=== PATIENT | male | born 1945 | race Caucasian/White ===

== ENCOUNTER → 2017-02-13 | Outpatient (CLI) | payer OTHER, SELFPAY | LOC: KOH-I 13:02 | DX: R60.0 Localized edema (principal) | CPT/HCPCS: 93971; 94640; 94664 ==

== ENCOUNTER → 2017-03-06 | Outpatient (CLI) | payer OTHER, SELFPAY ==
[2017-03-06 09:10] LABS: BUN/CREATININE RATIO 13 (0-10)
== END ==
LOC: LAB 08:18
PROVIDERS: Emergency Medicine
DX: E03.8 Other specified hypothyroidism (principal); R60.0 Localized edema; I25.10 Atherosclerotic heart disease of native coronary artery without angina pectoris; E78.2 Mixed hyperlipidemia; I10 Essential (primary) hypertension; R53.83 Other fatigue
CPT/HCPCS: 36415; 80053; 84443

== ENCOUNTER 2017-04-06 19:23 | Emergency (ER) | payer OTHER, SELFPAY | END 2017-04-06 22:00 | disposition home or self-care (01) | LOC: ER1 19:23 | DX: L23.7 Allergic contact dermatitis due to plants, except food (principal); I10 Essential (primary) hypertension; E07.9 Disorder of thyroid, unspecified; F17.210 Nicotine dependence, cigarettes, uncomplicated; Z88.2 Allergy status to sulfonamides; Z88.8 Allergy status to other drugs, medicaments and biological substances; Z79.899 Other long term (current) drug therapy | CPT/HCPCS: 96372; 99282; J1100 ==

== ENCOUNTER → 2020-11-04 | Outpatient (CLI) | payer OTHER ==
[~2020-11-04] MED LIST: ALBUTEROL0.63 MG/3 INH; AUGMENTIN 875-1 EACH PO; CLARITIN10 MG PO; DYMISTA NASAL S23 GM; ECOTRIN81 MG PO; ELIQUIS5 MG PO; IBUPROFEN800 MG PO; IPRATROPIU0.2 MG/1 M INH; KENALOG CREAM 015 GM TD; LEVOTHYROXINE75 MC1 PO; LIPITOR TAB 2020 MG PO; LIPITOR20 MG PO; LISINOPRIL20 MG PO; MEDROL4 MG PO; PERCOCET 5-3251 EACH PO; PLAVIX 75 MG TA75 MG PO; PROTONIX 40 MG40 M1 PO; PROTONIX40 MG PO; PROVENTIL HFA6.7 GM INH; SYMBICORT 16010.2 GM INH; SYNTHROID75 MCG PO; TESSALON PERLE100 MG PO; TOPROL XL100 MG PO; VITAMIN B-121000 MCG PO; XYZAL5 MG PO
== END ==
LOC: LAB 10:40
DX: Z00.00 Encounter for general adult medical examination without abnormal findings (principal); I25.119 Atherosclerotic heart disease of native coronary artery with unspecified angina pectoris; E78.5 Hyperlipidemia, unspecified; I10 Essential (primary) hypertension; E78.00 Pure hypercholesterolemia, unspecified; I21.9 Acute myocardial infarction, unspecified; I65.29 Occlusion and stenosis of unspecified carotid artery
CPT/HCPCS: 36415; 80061; 80076

== ENCOUNTER → 2020-12-28 | Outpatient (CLI) | payer OTHER, SELFPAY | LOC: RT 09:50 | DX: I25.10 Atherosclerotic heart disease of native coronary artery without angina pectoris (principal); I10 Essential (primary) hypertension; I48.91 Unspecified atrial fibrillation; R94.31 Abnormal electrocardiogram [ECG] [EKG] | CPT/HCPCS: 93005 ==

== ENCOUNTER 2021-03-02 10:07 | Emergency (ER) | payer OTHER ==
[~2021-03-02 10:07] MED LIST changes: -IBUPROFEN800 MG PO
[2021-03-02] MEDS ORDERED: IBUPROFEN800 MG PO (12:12)
== END 2021-03-02 12:41 | disposition home or self-care (01) ==
LOC: ER1 10:07
DX: S61.211A Laceration without foreign body of left index finger without damage to nail, initial encounter (principal); I50.9 Heart failure, unspecified; W01.0XXA Fall on same level from slipping, tripping and stumbling without subsequent striking against object, initial encounter
CPT/HCPCS: 73130; 99283

== ENCOUNTER → 2021-03-08 | Outpatient (CLI) | payer OTHER ==
[~2021-03-08] MED LIST changes: +IBUPROFEN800 MG PO
[2021-03-08 11:30] LABS: HEMOGLOBIN 15.7 gm/dl (14.0-17.5); RED BLOOD COUNT 5.06 M/UL (4.20-5.50); WHITE BLOOD COUNT 7.4 K/UL (4.5-11.0)
[2021-03-08 11:54] LABS: BUN/CREATININE RATIO 11 (0-10)
[2021-03-11 12:15] LABS: CHOLESTEROL, TOTAL 138 mg/dL (100-199); HDL SIZE 8.8 nm (>=9.2); HDL-C 38 mg/dL (>39); HDL-P (TOTAL) 25.8 umol/L (>=30.5); LARGE HDL-P 3.6 umol/L (>=4.8); LARGE VLDL-P 2.9 nmol/L (<=2.7); LDL SIZE 20.7 nm (>20.5); LDL SIZE 20.7 nm (>=20.8); LDL-C 78 mg/dL (0-99); LDL-P 868 nmol/L (<1000); LP-IR SCORE 57 (<=45); SMALL LDL-P 367 nmol/L (<=527); TRIGLYCERIDES 122 mg/dL (0-149)
== END ==
LOC: LAB 10:05
PROVIDERS: Emergency Medicine
DX: Z00.01 Encounter for general adult medical examination with abnormal findings (principal); E78.2 Mixed hyperlipidemia; J43.8 Other emphysema; I48.21 Permanent atrial fibrillation; E03.8 Other specified hypothyroidism; I10 Essential (primary) hypertension; R35.0 Frequency of micturition
CPT/HCPCS: 36415; 80053; 80061; 83704; 84443; 84550; 85025

== ENCOUNTER → 2021-06-14 | Outpatient (CLI) | payer OTHER ==
[2021-06-14 10:45] LABS: BUN/CREATININE RATIO 12 (0-10)
== END ==
LOC: LAB 09:39
PROVIDERS: Emergency Medicine
DX: E78.2 Mixed hyperlipidemia (principal); E03.8 Other specified hypothyroidism; I10 Essential (primary) hypertension
CPT/HCPCS: 36415; 80053

== ENCOUNTER 2021-06-25 09:52 | Emergency (ER) | payer OTHER ==
[~2021-06-25] VITALS: Ht 170.2 cm; Wt 69.4 kg
[2021-06-25 11:52] LABS: HEMOGLOBIN 14.9 gm/dl (14.0-17.5); RED BLOOD COUNT 4.98 M/UL (4.20-5.50); WHITE BLOOD COUNT 5.3 K/UL (4.5-11.0)
[2021-06-25] MEDS ORDERED: DELSYM30 MG/5 ML PO (15:41)
[2021-06-25] MEDS ORDERED: ATROVENT HFA12.9 GM INH (15:41)
== END 2021-06-25 16:15 | disposition home or self-care (01) ==
LOC: ER1 09:52
PROVIDERS: Physician Assistant
DX: Z23 Encounter for immunization (principal); U07.1 COVID-19; I11.0 Hypertensive heart disease with heart failure; I50.9 Heart failure, unspecified; I48.91 Unspecified atrial fibrillation; Z86.73 Personal history of transient ischemic attack (TIA), and cerebral infarction without residual deficits; Z95.1 Presence of aortocoronary bypass graft; Z88.2 Allergy status to sulfonamides
CPT/HCPCS: 71045; 80053; 82550; 82553; 83874; 83880; 84484; 85025; 93005; 99284; M0243; U0002

== ENCOUNTER 2021-07-02 06:30 | Inpatient (IN) | payer OTHER ==
[~2021-07-02] VITALS: Ht 170.2 cm; Wt 68.9 kg
[~2021-07-02 06:30] MED LIST changes: +ATROVENT HFA12.9 GM INH; +DELSYM30 MG/5 ML PO; -LEVOTHYROXINE75 MC1 PO
[2021-07-02 07:02] LABS: HEMOGLOBIN 15.4 gm/dl (14.0-17.5); RED BLOOD COUNT 5.17 M/UL (4.20-5.50); WHITE BLOOD COUNT 12.5 K/UL (4.5-11.0)
[2021-07-02 07:30] LABS: BUN/CREATININE RATIO 16 (0-10)
[2021-07-02] MEDS ORDERED: LEVOTHYROXINE75 MCG PO (11:54)
[2021-07-02] MEDS ORDERED: SYMBICORT 160-1 INHA INH (12:44)
[2021-07-02] MEDS ORDERED: PROAIR DIGIHAL90 MCG INH (12:46)
[2021-07-02] MEDS ORDERED: ISOSORBIDE MONO60 MG PO (12:46)
[2021-07-02] MEDS ORDERED: METOPROLOL SUC100 MG PO (12:47)
[2021-07-02] MEDS ORDERED: LEVOCETIRIZINE D5 MG PO (12:48)
[2021-07-02] MEDS ORDERED: VITAMIN B-121000 MCG PO (12:48)
[2021-07-02] MEDS ORDERED: GARLIC1000 MG PO (12:48)
[2021-07-03 00:39] LABS: HEMOGLOBIN 14.1 gm/dl (14.0-17.5)
[2021-07-03 00:41] LABS: RED BLOOD COUNT 4.52 M/UL (4.20-5.50); WHITE BLOOD COUNT 8.6 K/UL (4.5-11.0)
[2021-07-03 00:54] LABS: BUN/CREATININE RATIO 13 (0-10)
== END 2021-07-03 11:15 | disposition left against medical advice (07) | DRG 177 ==
LOC: ER1 06:30 → CDU 08:28
PROVIDERS: Physician Assistant; Physician Assistant Medical; ADMIT Internal Medicine
PROC: XW033E5 Introduction of Remdesivir Anti-infective into Peripheral Vein, Percutaneous Approach, New Technology Group 5 (ICD-10-PCS; principal; 2021-07-02)
PROC: 3E0333Z Introduction of Anti-inflammatory into Peripheral Vein, Percutaneous Approach (ICD-10-PCS; 2021-07-02)
DX: U07.1 COVID-19 (principal); J12.82 Pneumonia due to coronavirus disease 2019; J96.01 Acute respiratory failure with hypoxia; I21.4 Non-ST elevation (NSTEMI) myocardial infarction; J44.0 Chronic obstructive pulmonary disease with (acute) lower respiratory infection; I71.4 Abdominal aortic aneurysm, without rupture; F17.210 Nicotine dependence, cigarettes, uncomplicated; I25.10 Atherosclerotic heart disease of native coronary artery without angina pectoris; E78.5 Hyperlipidemia, unspecified; E03.9 Hypothyroidism, unspecified; I48.0 Paroxysmal atrial fibrillation; J45.909 Unspecified asthma, uncomplicated; I72.3 Aneurysm of iliac artery; K21.9 Gastro-esophageal reflux disease without esophagitis; E87.6 Hypokalemia; I10 Essential (primary) hypertension; Z95.1 Presence of aortocoronary bypass graft; Z79.01 Long term (current) use of anticoagulants; Z90.49 Acquired absence of other specified parts of digestive tract; Z98.890 Other specified postprocedural states; Z88.2 Allergy status to sulfonamides; Z88.8 Allergy status to other drugs, medicaments and biological substances; Z82.3 Family history of stroke; Z83.3 Family history of diabetes mellitus; Z80.9 Family history of malignant neoplasm, unspecified; Z90.89 Acquired absence of other organs; Z82.49 Family history of ischemic heart disease and other diseases of the circulatory system; Z79.82 Long term (current) use of aspirin; Z79.899 Other long term (current) drug therapy
CPT/HCPCS: 36600; 71045; 80048; 80053; 82550; 82553; 82803; 83605; 83735; 83874; 83880; 84484; 85025; 85027; 85610; 85730; 87040; 93005; 94640; 94760; 99285; J1100; J1644; J2543; J7030; J7050

== ENCOUNTER 2021-07-06 09:21 | Observation (INO) | payer OTHER ==
[~2021-07-06] VITALS: Ht 170.2 cm; Wt 68.9 kg
[~2021-07-06 09:21] MED LIST changes: +GARLIC1000 MG PO; +ISOSORBIDE MONO60 MG PO; +LEVOCETIRIZINE D5 MG PO; +LEVOTHYROXINE75 MCG PO; +METOPROLOL SUC100 MG PO; +PROAIR DIGIHAL90 MCG INH; +SYMBICORT 160-1 INHA INH
[2021-07-06 10:01] LABS: HEMOGLOBIN 13.5 gm/dl (14.0-17.5); RED BLOOD COUNT 4.35 M/UL (4.20-5.50); WHITE BLOOD COUNT 10.5 K/UL (4.5-11.0)
[2021-07-06 10:37] LABS: BUN/CREATININE RATIO 15 (0-10)
[2021-07-07 03:47] LABS: HEMOGLOBIN 13.2 gm/dl (14.0-17.5); RED BLOOD COUNT 4.28 M/UL (4.20-5.50)
[2021-07-07 04:11] LABS: BUN/CREATININE RATIO 12 (0-10)
--- NOTE | 2021-07-07 10:58 | NUR ---
patient was seen by dr. gibson. received instructions from dr. gibson patient is going home, cancelled stress test, covid test. patient refused to take all his morning medications- dr. gibson aware. dr. amor hospitalist and dr. lara aware ofthe above
== END 2021-07-07 12:44 | disposition home or self-care (01) ==
LOC: ER1 09:21 → M/S 16:49 → CDU 16:49 → M/S 16:49
PROVIDERS: Physician Assistant; Student in an Organized Health Care Education/Training Program; ADMIT Internal Medicine
DX: U07.1 COVID-19 (principal); J12.82 Pneumonia due to coronavirus disease 2019; I48.20 Chronic atrial fibrillation, unspecified; Z79.01 Long term (current) use of anticoagulants; I21.4 Non-ST elevation (NSTEMI) myocardial infarction; Z95.1 Presence of aortocoronary bypass graft; I10 Essential (primary) hypertension; E78.5 Hyperlipidemia, unspecified; J44.9 Chronic obstructive pulmonary disease, unspecified; E03.9 Hypothyroidism, unspecified; Z88.2 Allergy status to sulfonamides; Z88.8 Allergy status to other drugs, medicaments and biological substances; J96.01 Acute respiratory failure with hypoxia; I25.10 Atherosclerotic heart disease of native coronary artery without angina pectoris; E87.6 Hypokalemia; Z86.79 Personal history of other diseases of the circulatory system
CPT/HCPCS: 36415; 71045; 80048; 80053; 82550; 82553; 83690; 83874; 84484; 85025; 85610; 85730; 93005; 94640; 94760; 96374; 99285; G0378; J1100; J2543

== ENCOUNTER → 2021-07-21 | Outpatient (CLI) | payer OTHER | LOC: KOH-I 07-07 09:00 | DX: J43.8 Other emphysema (principal); R91.8 Other nonspecific abnormal finding of lung field | CPT/HCPCS: 71250 ==

== ENCOUNTER → 2021-11-16 | Outpatient (CLI) | payer OTHER ==
[2021-11-16 09:05] LABS: HEMOGLOBIN 16.2 gm/dl (14.0-17.5); RED BLOOD COUNT 5.13 M/UL (4.20-5.50)
[2021-11-17 09:14] LABS: A/G RATIO 1.6 (1.2-2.2); BILIRUBIN, TOTAL 0.6 mg/dL (0.0-1.2); CALCIUM, SERUM 9.3 mg/dL (8.6-10.2); CREATININE, SERUM 0.94 mg/dL (0.76-1.27); GLOBULIN, TOTAL 2.7 g/dL (1.5-4.5); POTASSIUM, SERUM 4.8 mmol/L (3.5-5.2); TSH 2.8 uIU/mL (0.450-4.500)
[2021-11-19 11:12] LABS: CHOLESTEROL, TOTAL 156 mg/dL (100-199); HDL-C 38 mg/dL (>39); HDL-P (TOTAL) 23.6 umol/L (>=30.5); LARGE HDL-P 4.6 umol/L (>=4.8); LARGE VLDL-P 5.4 nmol/L (<=2.7); LDL SIZE 21.2 nm (>20.5); LDL SIZE 21.2 nm (>=20.8); LDL-C 92 mg/dL (0-99); LDL-P 1266 nmol/L (<1000); LP-IR SCORE 56 (<=45); SMALL LDL-P 524 nmol/L (<=527); TRIGLYCERIDES 147 mg/dL (0-149); VLDL SIZE 49.4 nm (<=46.6)
== END ==
LOC: LAB 08:44
PROVIDERS: Emergency Medicine
DX: I25.10 Atherosclerotic heart disease of native coronary artery without angina pectoris (principal); I10 Essential (primary) hypertension; E78.2 Mixed hyperlipidemia; E03.8 Other specified hypothyroidism; I48.21 Permanent atrial fibrillation
CPT/HCPCS: 36415; 80053; 80061; 83704; 84443; 84550; 85025

== ENCOUNTER → 2022-04-25 | Outpatient (CLI) | payer OTHER ==
[2022-04-25 11:25] LABS: BUN/CREATININE RATIO 13 (0-10)
== END ==
LOC: LAB 10:30
PROVIDERS: Emergency Medicine
DX: E78.2 Mixed hyperlipidemia (principal); I10 Essential (primary) hypertension; E03.8 Other specified hypothyroidism; N40.1 Benign prostatic hyperplasia with lower urinary tract symptoms
CPT/HCPCS: 36415; 80053; 84153; 84443